=== PATIENT | female | born 1970 | race Caucasian/White ===

== ENCOUNTER 2016-08-10 19:19 | Emergency (ER) | payer OTHER, MEDICARE ==
[~2016-08-10] VITALS: Ht 165.1 cm; Wt 105.2 kg
[~2016-08-10 19:19] MED LIST: ADVAIR DISKUS 21 DSK PO; BENTYL 10 MG CA10 MG PO; BENTYL20 MG PO; BENZTROPINE MESY2 MG PO; CIPRO 500MG TA500 MG PO; CLONAZEPAM1 MG PO; COZAAR25 M1 PO; CYMBALTA60 MG; CYMBALTA60 MG PO; DILAUDID2 MG PO; GEODON 80 MG CA80 MG PO; HALOPERIDOL2 MG PO; IBUPROFEN800 MG PO; JANUVIA100 M1 PO; LEVOTHYROXINE0.05 MG PO; LOVAZA1 GM PO; MACROBID100 MG PO; METFORMIN1000 MG PO; OMEPRAZOLE40 MG PO; PERCOCET 325 MG1 TA2 PO; PERCOCET 325 MG1 TAB PO; PRAVASTATIN SOD10 MG PO; PYRIDIUM100 MG PO; SOMA 350MG TAB350 MG PO; TOPAMAX 100MG100 MG PO; TOPIRAMATE100 MG; TRAZODONE50 MG PO; ZANAFLEX4 MG PO; ZOFRAN ODT4 MG SL
--- NOTE | 2016-08-10 19:23 | ED MVC/FALL/TRAUMA COMPLAINT ---
History of Present Illness General Chief Complaint: Fall Stated Complaint: S/P LFALL IN BATHROOM, + HEAD STRIKE Source: patient Exam Limitations: no limitations Vital Signs & Intake/Output Vital Signs & Intake/Output Vital Signs Date Time Temp Pulse Resp B/P Pulse O2 O2 Flow FiO2 Ox Delivery Rate 08/10 1930 99.9 84 16 132/63 94 Nasal 2.0L Cannula Allergies Coded Allergies: NO KNOWN ALLERGIES (05/05/14) Reconcile Medications Benztropine Mesylate 2 MG TABLET 1 TAB PO BID SHAKING R/T OTHER MEDS ( Reported) Clonazepam 1 MG TABLET 1 TAB PO TID PRN ANXIETY (Reported) Dicyclomine Hydrochloride (Bentyl) 20 MG TAB 1 TAB PO TID PRN ABDOMINAL PAIN/ SPASMS Diphenoxylate HCl/Atropine (Lomotil 2.5-0.025 MG Tablet) 2.5 MG-0.025 MG TABLET 1 TAB PO 4 TIMES/DAY PRN DIARRHEA TEN...[id number] DULOXETINE HCL (Cymbalta) 60 MG CAPSULE.DR 1 CAP PO DAILY DEPRESSION ( Reported) FLUTICASONE/SALMETEROL (Advair 250-50 Diskus) 250 MCG-50 MCG/DOSE BLST.W.DEV 1 INH PO BID SOB (Reported) Ibuprofen 800 MG TABLET 1 TAB PO DAILY PRN PAIN (Reported) Levothyroxine Sodium 50 MCG TABLET 1 TAB PO DAILY AC THYROID (Reported) Losartan Potassium (Unknown Strength) TABLET (Unknown Dose) PO DAILY PROTEIN IN KIDNEYS (Reported) METFORMIN HCL (Metformin) 1,000 MG TABLET 1 TAB PO BID DIABETES (Reported) Kfqhe-1-Myhe Ethyl Esters (Lovaza) 1 GRAM CAPSULE 2 CAP PO BID CHOLESTEROL ( Reported) Omeprazole 40 MG CAPSULE.DR 1 CAP PO DAILY ACID REFLUX (Reported) Ondansetron (Zofran Odt) 4 MG TAB.RAPDIS 1 TAB SL TID PRN NAUSEA OXYCODONE HCL/ACETAMINOPHEN (Percocet 5-325 MG Tablet) 325 MG/5 MG TAB 1-1.5 TAB PO Q8P PRN PAIN (Reported) PHENAZOPYRIDINE HCL (Pyridium) 100 MG TAB 1 TAB PO TID PRN DYSURIA Pravastatin (Pravastatin Sodium) 10 MG TAB 1 TAB PO DAILY CHOLESTEROL ( Reported) Sitagliptin Phosphate (Januvia) (Unknown Strength) TABLET (Unknown Dose) PO DAILY DIABETES (Reported) Tizanidine Hydrochloride (Zanaflex) 4 MG TAB 1 TAB PO TID PRN MUSCLE SPASMS ( Reported) Topiramate (Topamax 100MG) 100 MG TABLET 1 TAB PO BID BIPOLAR/MIGRAINES ( Reported) TRAZODONE HCL (Trazodone HCl) 50 MG TABLET 2 TAB PO AT BEDTIME SLEEP ( Reported) Ziprasidone Hydrochloride (Geodon 80 MG Cap) 80 MG CAPSULE 2 CAP PO BID BIPOLAR (Reported) Triage Nurses Notes Reviewed? yes Onset: Abrupt Duration: minute(s): Timing: single episode today Severity: moderate Injuries/Fall Location: head Method of Injury: fall Loss of Consciousness: no loss of consciousness Modifying Factors: Improves With: rest. Worsens With: palpation. Associated Symptoms: headache HPI: 45 yo woman with chronic pain, presents after a mechanical fall in the bathroom. She notes that she hit her head. She did not lose consciousness, but notes a headache and neck pain. She is otherwise well and suffered no other injury. She also notes that she has had nausea and diarrhea for the past 2-3 days. No abdominal pain, fever, chills, dysuria. Past History Travel History Traveled to [place] past 21 day No Medical History Any Pertinent Medical History? see below for history Cardiovascular: hyperlipidemia Musculoskeletal: chronic back pain Psychiatric: bipolar disease Endocrine: diabetes, hypothyroidism Surgical History Surgical History: unobtainable Psychosocial History Who do you live with Spouse Services at Home None What is your primary language Croatian Family History Family History, If Any: FATHER *No pertinent family history, Onset: 50-60. Relation not specified for: FH: prostate cancer Hx Contributory? No Review of Systems Review of Systems Constitutional: Reports: no symptoms. Eyes: Reports: no symptoms. Ears, Nose, Throat, Mouth: Reports: no symptoms. Respiratory: Reports: no symptoms. Cardiovascular: Reports: no symptoms. Gastrointestinal/Abdominal: Reports: no symptoms. Genitourinary: Reports: no symptoms. Musculoskeletal: Reports: no symptoms. Skin: Reports: no symptoms. Neurological/Psychological: Reports: no symptoms. All Other Systems: Reviewed and Negative Physical Exam Physical Exam General Appearance: well developed/nourished, mild distress Head: atraumatic, normal appearance Eyes: Bilateral: normal appearance, PERRL, EOMI. Ears, Nose, Throat, Mouth: hearing grossly normal Neck: normal inspection, supple, full range of motion, normal alignment Respiratory: normal breath sounds, chest non-tender, no respiratory distress, quiet respiration, lungs clear Cardiovascular: regular rate/rhythm Gastrointestinal: normal bowel sounds, soft, non-tender, no organomegaly Back: normal inspection Extremities: normal range of motion Neurologic/Psych: no motor/sensory deficits, awake, alert, oriented x 3 Skin: intact, normal color, warm/dry Core Measures ACS in differential dx? No Severe Sepsis Present: No Septic Shock Present: No Progress Differential Diagnosis: C/T/L spine injury, ICH Plan of Care: Orders Procedure Date/time Status LIPASE 08/10 1924 Complete HEPATIC FUNCTION PANEL 08/10 1924 Complete CBC WITHOUT DIFFERENTIAL 08/10 1924 Complete BASIC METABOLIC PANEL 08/10 1924 Complete AMYLASE 08/10 1924 Complete Current Medications Sig/Idania Start time Last Medication Dose Stop Time Status Admin Morphine Sulfate 6 MG ONCE ONE 08/10 2299 UNVr (Morphine) 08/10 2300 Promethazine HCl 25 MG ONCE ONE 08/10 2299 UNVr (Phenergen) 08/10 2300 Laboratory Tests 08/10/16 2020: Anion Gap 12, Estimated GFR > 60, BUN/Creatinine Ratio 11.4, Glucose 119 H, Calcium 9.2, Total Bilirubin 0.5, Direct Bilirubin 0.3, AST 19, ALT 36, Alkaline Phosphatase 72, Total Protein 6.4, Albumin 3.7, Amylase < 30 L, Lipase 88, CBC w Diff NO MAN DIFF REQ, RBC 4.75, MCV 77.6 L, MCH 25.2 L, RDW 15.5 H, MPV 6.3 L, Gran % 61.9, Lymphocytes % 28.8, Monocytes % 6.7, Eosinophils % 2.2, Basophils % 0.4, Absolute Granulocytes 6.8 H, Absolute Lymphocytes 3.1, Absolute Monocytes 0.7 H, Absolute Eosinophils 0.2, Absolute Basophils 0, PUBS MCHC 32.5 L Diagnostic Imaging: Viewed by Me: CT Scan. Discussed w/RAD: CT Scan. Radiology Impression: head/cervical ct... no acute disease Comments: PATIENT: HARRIETT SORTO PRESENT AGE: 45 PATIENT ACCOUNT NO: [id number] : 68 LOCATION: [facility] ORDERING PHYSICIAN: CHRISSY ARIAS MD SERVICE DATE: 08/10/16-1925 EXAM TYPE: CAT - CT CERV SPINE WO IV CONTRAST; CT HEAD WO IV CONTRAST EXAMINATION: CT HEAD AND CERVICAL SPINE WITHOUT CONTRAST CLINICAL INFORMATION: Head injury following fall. COMPARISON: None. TECHNIQUE: Contiguous axial imaging was performed from the thoracic inlet to the vertex without intravenous administration of contrast. DLP: 833.06 mGy-cm. FINDINGS: Head: No acute intracranial abnormality. No acute intracranial hemorrhage, mass or mass effect or abnormal extra-axial fluid collections. The density within the dural venous sinuses is within normal limits. The ventricles are normal in size, without hydrocephalus. There are no focal areas of hypoattenuation within a vascular distribution to suggest acute transcortical ischemia. The basilar cisterns are patent. No acute calvarial abnormality is identified. Soft tissues appear unremarkable. The imaged paranasal sinuses and mastoid air cells are well aerated. Cervical spine: No acute cervical spine fractures or subluxations. Vertebral body heights and intervertebral disc spaces are preserved. The atlantoaxial and craniocervical junctions are intact. Prevertebral soft tissues are within normal limits. The included bilateral lung apices are clear. IMPRESSION: 1. No acute intracranial abnormality. 2. No acute cervical spine fracture or subluxation. DICTATED BY: MIGNON HOOD MD DATE/TIME DICTATED:08/10/162223 VEGETABLE SPECKER:MARCO DATE/TIME TRANSCRIBED:08/10/162223 CONFIDENTIAL, DO NOT COPY WITHOUT APPROPRIATE AUTHORIZATION. <Electronically signed in Other Vendor System> SIGNED BY: MIGNON HOOD MD 08/10/16 2240 Departure Departure Disposition: HOME OR SELF CARE Condition: Stable Clinical Impression Primary Impression: Fall Secondary Impressions: Contusion, Head injury, Nausea and vomiting Referrals: MERLINE ALEXIS MD (PCP/Family) Departure Forms: Customer Survey General Discharge Information Prescriptions: Current Visit Scripts Ondansetron (Zofran Odt) 1 TAB SL TID PRN NAUSEA #10 TAB Ref 1 Diphenoxylate HCl/Atropine (Lomotil 2.5-0.025 MG Tablet) 1 TAB PO 4 TIMES/DAY PRN DIARRHEA #10 TAB TEN...[id number] Comments 08/10/16, 23:00.... pt feeling improved after supportive measures... pt safe for discharge... close follow up advised.
[2016-08-10 20:32] LABS: ABSOLUTE BASOPHIL COUNT 0 /CUMM (0.0-0.2); ABSOLUTE EOSINOPHIL COUNT 0.2 /CUMM (0.0-0.7); ABSOLUTE GRANULOCYTE CT 6.8 /CUMM (1.4-6.5); ABSOLUTE LYMPH COUNT 3.1 /CUMM (1.2-3.4); ABSOLUTE MONOCYTE COUNT 0.7 /CUMM (0.10-0.60); BASOPHIL % 0.4 % (0.0-2.0); EOSINOPHIL % 2.2 % (0-5); GRANULOCYTE % 61.9 % (42.2-75.2); HEMATOCRIT 36.9 % (37-47); MEAN CORPUSCULAR HGB 25.2 PG (27.0-31.0); MEAN CORPUSCULAR HGB CONC 32.5 G/DL (33.0-37.0); MEAN CORPUSCULAR VOLUME 77.6 FL (81.0-99.0); MEAN PLATELET VOLUME 6.3 FL (7.4-10.4); PLATELET COUNT 425 /CUMM (130-400); RBC DISTRIBUTION WIDTH 15.5 % (11.5-14.5); RED BLOOD CELL CT 4.75 /CUMM (4.20-5.40); WHITE BLOOD CELL COUNT 10.9 /CUMM (4.8-10.8)
--- NOTE | 2016-08-10 22:40 | CT SCAN REPORT ---
EXAMINATION: CT HEAD AND CERVICAL SPINE WITHOUT CONTRAST CLINICAL INFORMATION: Head injury following fall. COMPARISON: None. TECHNIQUE: Contiguous axial imaging was performed from the thoracic inlet to the vertex without intravenous administration of contrast. DLP: 833.06 mGy-cm. FINDINGS: Head: No acute intracranial abnormality. No acute intracranial hemorrhage, mass or mass effect or abnormal extra-axial fluid collections. The density within the dural venous sinuses is within normal limits. The ventricles are normal in size, without hydrocephalus. There are no focal areas of hypoattenuation within a vascular distribution to suggest acute transcortical ischemia. The basilar cisterns are patent. No acute calvarial abnormality is identified. Soft tissues appear unremarkable. The imaged paranasal sinuses and mastoid air cells are well aerated. Cervical spine: No acute cervical spine fractures or subluxations. Vertebral body heights and intervertebral disc spaces are preserved. The atlantoaxial and craniocervical junctions are intact. Prevertebral soft tissues are within normal limits. The included bilateral lung apices are clear. IMPRESSION: 1. No acute intracranial abnormality. 2. No acute cervical spine fracture or subluxation.
[2016-08-10] MEDS ORDERED: ZOFRAN ODT4 M1 SL (22:59)
[2016-08-10] MEDS ORDERED: LOMOTIL 2.5-0.1 EACH PO (22:59)
[2016-08-10 23:09] VITALS: BP 105/55
[2016-11-14] MEDS ORDERED: LINZESS145 MC1 PO (12:35)
[2016-11-14] MEDS ORDERED: REGLAN10 M1 PO (12:36)
[2016-11-14] MEDS ORDERED: OXYCONTIN20 M1 PO (12:36)
[2016-11-14] MEDS ORDERED: VICTOZA 2-0.6 MG/0.1 SC (12:36)
[2016-11-14] MEDS ORDERED: BENZTROPINE MESY2 M1 PO (12:37)
[2016-11-14] MEDS ORDERED: ANORO ELLIPTA1 EACH (12:38)
== END 2016-08-11 00:02 ==
LOC: ERH 19:19
PROVIDERS: Pediatrics
DX: S00.93XA Contusion of unspecified part of head, initial encounter (principal); S09.90XA Unspecified injury of head, initial encounter; W19.XXXA Unspecified fall, initial encounter; Y92.002 Bathroom of unspecified non-institutional (private) residence as the place of occurrence of the external cause
CPT/HCPCS: 96374; 96375; J1885; J2405; J2550

== ENCOUNTER 2016-10-22 17:38 | Emergency (ER) | payer OTHER, MEDICARE ==
[~2016-10-22] VITALS: Ht 165.1 cm; Wt 108.0 kg
[~2016-10-22 17:38] MED LIST changes: +LOMOTIL 2.5-0.1 EACH PO; +ZOFRAN ODT4 M1 SL
[2016-10-22 17:43] VITALS: BP 126/77
--- NOTE | 2016-10-22 19:22 | ED MVC/FALL/TRAUMA COMPLAINT ---
History of Present Illness General Chief Complaint: Fall Stated Complaint: FALL; SHOULDER PAIN Source: patient, old records Exam Limitations: no limitations Vital Signs & Intake/Output Vital Signs & Intake/Output Vital Signs Date Time Temp Pulse Resp B/P Pulse O2 O2 Flow FiO2 Ox Delivery Rate 10/22 2016 97.6 87 18 96 Room Air 10/22 1938 Room Air 10/22 1743 98.9 100 14 126/77 100 Room Air Allergies Coded Allergies: NO KNOWN ALLERGIES (05/05/14) Reconcile Medications Benztropine Mesylate 2 MG TABLET 1 TAB PO BID SHAKING R/T OTHER MEDS ( Reported) Clonazepam 1 MG TABLET 1 TAB PO TID PRN ANXIETY (Reported) Dicyclomine Hydrochloride (Bentyl) 20 MG TAB 1 TAB PO TID PRN ABDOMINAL PAIN/ SPASMS Diphenoxylate HCl/Atropine (Lomotil 2.5-0.025 MG Tablet) 2.5 MG-0.025 MG TABLET 1 TAB PO 4 TIMES/DAY PRN DIARRHEA TEN...[id number] DULOXETINE HCL (Cymbalta) 60 MG CAPSULE.DR 1 CAP PO DAILY DEPRESSION ( Reported) FLUTICASONE/SALMETEROL (Advair 250-50 Diskus) 250 MCG-50 MCG/DOSE BLST.W.DEV 1 INH PO BID SOB (Reported) Ibuprofen 800 MG TABLET 1 TAB PO DAILY PRN PAIN (Reported) Levothyroxine Sodium 50 MCG TABLET 1 TAB PO DAILY AC THYROID (Reported) Losartan Potassium (Unknown Strength) TABLET (Unknown Dose) PO DAILY PROTEIN IN KIDNEYS (Reported) METFORMIN HCL (Metformin) 1,000 MG TABLET 1 TAB PO BID DIABETES (Reported) Cwqdi-0-Azjx Ethyl Esters (Lovaza) 1 GRAM CAPSULE 2 CAP PO BID CHOLESTEROL ( Reported) Omeprazole 40 MG CAPSULE.DR 1 CAP PO DAILY ACID REFLUX (Reported) Ondansetron (Zofran Odt) 4 MG TAB.RAPDIS 1 TAB SL TID PRN NAUSEA OXYCODONE HCL/ACETAMINOPHEN (Percocet 5-325 MG Tablet) 325 MG/5 MG TAB 1-1.5 TAB PO Q8P PRN PAIN (Reported) PHENAZOPYRIDINE HCL (Pyridium) 100 MG TAB 1 TAB PO TID PRN DYSURIA Pravastatin (Pravastatin Sodium) 10 MG TAB 1 TAB PO DAILY CHOLESTEROL ( Reported) Sitagliptin Phosphate (Januvia) (Unknown Strength) TABLET (Unknown Dose) PO DAILY DIABETES (Reported) Tizanidine Hydrochloride (Zanaflex) 4 MG TAB 1 TAB PO TID PRN MUSCLE SPASMS ( Reported) Topiramate (Topamax 100MG) 100 MG TABLET 1 TAB PO BID BIPOLAR/MIGRAINES ( Reported) TRAZODONE HCL (Trazodone HCl) 50 MG TABLET 2 TAB PO AT BEDTIME SLEEP ( Reported) Ziprasidone Hydrochloride (Geodon 80 MG Cap) 80 MG CAPSULE 2 CAP PO BID BIPOLAR (Reported) Triage Note: PT TO ED FOR FALL AND L SHOULDER PAIN AFTER TRIPPING OVER HER CAT THIS MORNING, ALSO C/O "A LUMP GROWING INTO MY SPINE AND CAN I SEE DR SALAZAR SINCE IM HERE?" DID NOT HIT HEAD, NO LOC. REFUSING MOTRIN/TYLENOL IN TRIAGE. Triage Nurses Notes Reviewed? yes Onset: Abrupt Duration: day(s): (1), constant Timing: recent history Severity: mild, moderate Severity Numbers: 7 Injuries/Fall Location: upper extremity (left shoulder) Method of Injury: fall Loss of Consciousness: no loss of consciousness Modifying Factors: Improves With: rest, other (pain meds). Worsens With: movement, palpation. Associated Symptoms: denies HPI: 45-year-old female with history of chronic back pain for which she takes oxycodone Percocets at home presents complaining of left shoulder pain aching throbbing nonradiating since earlier this morning when she states she tripped over her cat sustaining a fall onto the left side injuring her shoulder. She denies head strike there is no loss of consciousness no neck or back pain from the fall. She denies any elbow wrist or hand pain no right arm or leg injury bilaterally. There is no prodromal dizziness or lightheadedness prior to her fall. She reports her pain medication did help her with her pain today no numbness or tingling (KAMRON COLLADO) Past History Travel History Traveled to [place] past 21 day No Medical History Any Pertinent Medical History? 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 Relation not specified for: FH: prostate cancer Hx Contributory? No (KAMRON COLLADO) Review of Systems Review of Systems Constitutional: Reports: see HPI. All Other Systems: Reviewed and Negative Comments Review of systems: See HPI, All other systems negative. Constitutional, no chills no fever, no malaise HEENT: No sore throat no congestion Cardiovascular: No chest pain , no palpitation , Skin, no rashes, no change in skin Respiratory: No dyspnea no cough no sputum GI: No nausea no vomiting, : No dysuria No hematuria, no frequency Muscle skeletal: joint pain, no joint swelling, CHRONIC back pain, no neck pain , Neurologic: no headache Psych: No stress Heme/endocrine: No bruising no bleeding Immunology: No lymphadenopathy (KAMRON COLLADO) Physical Exam Physical Exam General Appearance: well developed/nourished, alert, awake Comments: Well-developed well-nourished patient in no apparent distress. HEENT: Atraumatic, extraocular motion intact Neck: Supple, FROM, Back: FROM, Nontender Cardiovascular: Regular rate and rhythms no murmurs rubs Respiratory: Chest nontender.There were no bony deformities, no asymmetry. No respiratory distress. Patient speaking in full complete sentences. Breath sounds clear to auscultation bilaterally: NO W/R/R Shoulder: Atraumatic/Stable. Limited range of motion secondary to pain no deformity no ecchymosis mild tenderness palpation over the lateral aspect of the left shoulder Elbow: Atraumatic/stable. FROM. No laxity Upper arm/Forearm: Atraumatic. Nontender. 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 Skin intact. FROM no scaphoid tenderness hand is atraumatic nontender Pulses: Normal/equal radial pulses bilaterally. Brisk cap refill Lower Extremities: full range of motion Neuro: Alert and oriented x3 Skin: Warm & dry;No appreciable rash on exposed skin Psych: Mood affect normal, normal memory normal judgment. Core Measures ACS in differential dx? No Severe Sepsis Present: No Septic Shock Present: No (KAMRON COLLADO) Progress Differential Diagnosis: ext injury, pelvis injury, spinal cord injury Plan of Care: Orders Procedure Date/time Status Durable Medical Equipment 10/22 1938 Active Discussed with patient her x-ray results patient is medicated Dilaudid 1 mg IM Discussed with patient her x-ray results need for supportive care shoulder immobilizer was applied advised close follow-up with orthopedist. Take her pain medication as prescribed she feels comfortable this plan patient is ambulatory with steady gait upon discharge (KAMRON COLLADO) Diagnostic Imaging: Viewed by Me: Radiology Read. Discussed w/RAD: Radiology Read. Radiology Impression: PATIENT: HARRIETT SORTO PRESENT AGE: 45 PATIENT ACCOUNT NO: [id number] : 66 LOCATION: [facility] ORDERING PHYSICIAN: MERRY VOSS DO SERVICE DATE: 10/22/16 EXAM TYPE: RAD - XRY-SHOULDER COMPLETE-LEFT EXAMINATION: SHOULDER 4 VIEWS, LEFT CLINICAL INFORMATION: Left shoulder pain. COMPARISON: None. TECHNIQUE: AP views of the left shoulder were obtained in internal and external rotation. In addition, axillary and Y views were obtained. FINDINGS: There are no fractures or dislocations. The humeral head is seated within a well-formed glenoid. The AC joint is intact. IMPRESSION: Unremarkable left shoulder radiographs. 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 <Electronically signed in Other Vendor System> SIGNED BY: JOHN CHAVEZ MD 10/22/161942 (KAMRON COLLADO) Departure Departure Time of Disposition: 1947 Disposition: HOME OR SELF CARE Condition: Stable Clinical Impression Primary Impression: Shoulder sprain Referrals: DELON AMADOR,JOEY ALEXIS MD,MERLINE (PCP/Family) Additional Instructions: Rest ice take your pain medication as prescribed. Shoulder immobilizer as discussed. Follow-up with orthopedist Dr. hoffman if symptoms persist. return with any concerns Departure Forms: Customer Survey General Discharge Information (KAMRON COLLADO) PA/MISSION SUPPORT SPECIALIST Co-Sign Statement Statement: ED Attending supervision documentation- [] I saw and evaluated the patient. I have also reviewed all the pertinent lab results and diagnostic results. I agree with the findings and the plan of care as documented in the PA's/MISSION SUPPORT SPECIALIST's documentation. [x] I have reviewed the ED Record and agree with the PA's/MISSION SUPPORT SPECIALIST's documentation. [] Additions or exceptions (if any) to the PAs/MISSION SUPPORT SPECIALIST's note and plan are summarized below: [] (HUGO AMADOR,CHRISSY Duong)
--- NOTE | 2016-10-22 19:43 | RADIOLOGY REPORT ---
EXAMINATION: SHOULDER 4 VIEWS, LEFT CLINICAL INFORMATION: Left shoulder pain. COMPARISON: None. TECHNIQUE: AP views of the left shoulder were obtained in internal and external rotation. In addition, axillary and Y views were obtained. FINDINGS: There are no fractures or dislocations. The humeral head is seated within a well-formed glenoid. The AC joint is intact. IMPRESSION: Unremarkable left shoulder radiographs.
[2016-11-14] MEDS ORDERED: LINZESS145 MC1 PO (12:35)
[2016-11-14] MEDS ORDERED: OXYCONTIN20 M1 PO (12:36)
[2016-11-14] MEDS ORDERED: VICTOZA 2-0.6 MG/0.1 SC (12:36)
[2016-11-14] MEDS ORDERED: REGLAN10 M1 PO (12:36)
[2016-11-14] MEDS ORDERED: BENZTROPINE MESY2 M1 PO (12:37)
[2016-11-14] MEDS ORDERED: ANORO ELLIPTA1 EACH (12:38)
== END 2016-10-22 20:18 ==
LOC: ERH 17:38
DX: S43.402A Unspecified sprain of left shoulder joint, initial encounter (principal); W01.0XXA Fall on same level from slipping, tripping and stumbling without subsequent striking against object, initial encounter; Y93.9 Activity, unspecified; Y92.9 Unspecified place or not applicable
CPT/HCPCS: 73030-LT; 96372

== ENCOUNTER → 2016-11-21 | Day surgery (SDC) | payer OTHER, MEDICARE ==
[~2016-11-21] VITALS: Ht 165.1 cm; Wt 108.0 kg
[~2016-11-21] MED LIST changes: +ANORO ELLIPTA1 EACH; +BENZTROPINE MESY2 M1 PO; +LINZESS145 MC1 PO; +OXYCONTIN20 M1 PO; +REGLAN10 M1 PO; +VICTOZA 2-0.6 MG/0.1 SC
--- NOTE | 2016-11-21 14:32 | Operative Report ---
Operative/Inv Procedure Report Surgery Date: 11/21/16 Name of Procedure: Excision subfascial 10 cm lipoma, back Pre-Operative Diagnosis: Deep lipoma of the back Post-Operative Diagnosis: Same Estimated Blood Loss: scant Surgeon/Logistics Project Manager: MARIE AMADOR,TRACEY Woodard/Consuelo AKERS Anesthesia: local monitored anesthesi Specimens: 10 cm lipoma Operative/Procedure Note Note: After consent she was brought to the operating room and laid prone. Her back was then prepped and draped after sedation. The area around the mass was symmetrical cocktail local anesthesia. A transverse incision made sharply. Care dissection down to the investing fascia. We then incised the fascia thus exposing the mass. The mass was circumferentially dissected off the muscles with cautery. It was passed off the field and measured at 10 cm. Hemostasis achieved with cautery. The fascia was reapproximated with 3-0 Vicryl while imbricating the deeper tissues to try to it closed down the space previously occupied by the mass. The rest incision was closed in 2 more layers of 3-0 and 4-0 Vicryl. Steri-Strips and sterile dressing applied. Sponge and needle counts are correct CC: REUBEN AMADOR,MERLINE
== END ==
LOC: STS 01:11
DX: D17.1 Benign lipomatous neoplasm of skin and subcutaneous tissue of trunk (principal); E11.9 Type 2 diabetes mellitus without complications; Z79.84 Long term (current) use of oral hypoglycemic drugs; F17.200 Nicotine dependence, unspecified, uncomplicated
CPT/HCPCS: 81025; 88304; J0131; J0690; J2250

== ENCOUNTER 2016-11-28 11:53 | Emergency (ER) | payer OTHER, MEDICARE ==
[~2016-11-28] VITALS: Ht 165.1 cm; Wt 105.2 kg
--- NOTE | 2016-11-28 12:11 | ED MVC/FALL/TRAUMA COMPLAINT ---
History of Present Illness General Chief Complaint: Headache Stated Complaint: BIBA FOR FARIA Source: patient Exam Limitations: no limitations Vital Signs & Intake/Output Vital Signs & Intake/Output Vital Signs Date Time Temp Pulse Resp B/P B/P Pulse O2 O2 Flow FiO2 Mean Ox Delivery Rate 11/28 1339 97.4 110 18 122/63 95 11/28 1240 97 Room Air 11/28 1233 101 20 151/58 93 Room Air 11/28 1159 97.0 99 18 136/65 94 Room Air Allergies Coded Allergies: NO KNOWN ALLERGIES (05/05/14) Reconcile Medications Benztropine Mesylate 2 MG TABLET 1 TAB PO BID ? (Reported) Clonazepam 1 MG TABLET 1 TAB PO TID PRN ANXIETY (Reported) DULOXETINE HCL (Cymbalta) 60 MG CAPSULE.DR 1 CAP PO DAILY DEPRESSION ( Reported) Levothyroxine Sodium 50 MCG TABLET 1 TAB PO DAILY AC THYROID (Reported) Linaclotide (Linzess) 145 MCG CAPSULE 1 CAP PO DAILY OPIOD INDUCED CONSTIPATION (Reported) Liraglutide (Victoza 2-Garry) 0.6 MG/0.1 ML (18 MG/3 ML) PEN.INJCTR 1.8 SC DAILY DMII (Reported) Losartan Potassium (Cozaar) 25 MG TABLET 1 TAB PO DAILY KIDNEY PROTECTION ( Reported) METFORMIN HCL (Metformin) 1,000 MG TABLET 1 TAB PO BID DIABETES (Reported) Metoclopramide HCl (Reglan) 10 MG TABLET 1 TAB PO 4 TIMES/DAY GERD (Reported) 30 minutes before meals and bedtime Omeprazole 40 MG CAPSULE.DR 1 CAP PO DAILY ACID REFLUX (Reported) Oxycodone HCl (Oxycontin) 20 MG TAB.ER.12H 1 TAB PO BID CHRONIC BACK PAIN ( Reported) OXYCODONE HCL/ACETAMINOPHEN (Percocet 5-325 MG Tablet) 325 MG/5 MG TAB 1-1.5 TAB PO Q8P PRN PAIN (Reported) Sitagliptin Phosphate (Januvia) 100 MG TABLET 1 TAB PO DAILY DM II (Reported) Tizanidine Hydrochloride (Zanaflex) 4 MG TAB 1 TAB PO TID PRN MUSCLE SPASMS ( Reported) Topiramate (Topamax 100MG) 100 MG TABLET 1 TAB PO BID BIPOLAR/MIGRAINES ( Reported) Umeclidinium Brm/Vilanterol Tr (Anoro Ellipta 62.5-25 Mcg INH) 62.5 MCG-25 MCG/ ACTUATION BLST.W.DEV ASTHMA (Reported) Ziprasidone Hydrochloride (Geodon 80 MG Cap) 80 MG CAPSULE 2 CAP PO BID BIPOLAR (Reported) Triage Note: PT BIBA FROM HOME WITH C/O HEADACHE X2 DAYS AND NAUSEA SINCE LAST NIGHT. PT REPORTS FALLING OUT OF BED 2 DAYS AGO AND HITTING HER FOREHEAD. REPORTS NO LOC WITH FALL. HAS HAD HEADACHE SINCE, ALSO C/O BACK OF HEAD PAIN. Triage Nurses Notes Reviewed? yes Onset: Abrupt Duration: day(s): (2), intermittent, waxing and waning Timing: recent history Severity: moderate Severity Numbers: 7 Injuries/Fall Location: head Method of Injury: fall Loss of Consciousness: no loss of consciousness No Modifying Factors: none Associated Symptoms: nausea/vomiting HPI: 46-year-old female presents emergency room for evaluation complaining of a frontal headache for the past 2 days intermittent nausea and "fogginess" after she states she fell out of bed. Patient states that she was on the edge of the bed and lost her balance striking her head against the floor. There is no loss of consciousness at the time she's been taking her Percocet which she takes normally for her chronic pain with improvement. She denies any neck or back injury other injury with the fall. No prodromal dizziness lightheadedness prior to the episode of chest pain difficulty breathing shortness of breath or leg injury. (KAMRON COLLADO) Past History Travel History Traveled to [place] past 21 day No Medical History Any Pertinent Medical History? 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 Relation not specified for: FH: prostate cancer Hx Contributory? No (KAMRON COLLADO) Review of Systems Review of Systems Constitutional: Reports: see HPI. All Other Systems: Reviewed and Negative Comments Review of systems: See HPI, All other systems negative. Constitutional, no chills no fever, no malaise HEENT: No visual changes no sore throat no congestion, no ear pain Cardiovascular: No chest pain , no palpitation , no orthopnea Skin: no rashes, no change in skin Respiratory: No dyspnea no cough no sputum GI: nausea no vomiting, no diarrhea, no bloating/constipation : No dysuria No hematuria, no frequency, no discharge Muscle skeletal: No joint pain, no joint swelling, no back pain, no neck pain, Neurologic: No numbness no confusion, headache Psych: No stress Heme/endocrine: No bruising Immunology: No lymphadenopathy (KAMRON COLLADO) Physical Exam Physical Exam General Appearance: well developed/nourished, alert, awake Comments: Well-developed well-nourished person in no acute distress Head/Face: Atraumatic, no maxillary/frontal sinus tenderness, no facial swelling no marx signs Eyes: PERRL, EOMI, no conjunctival injection. No nystagmus no raccoon eyes Ear:External auditory canal and Tympanic membranes clear, no erythema, no hemotympanum Nose: atraumatic.Normal inspection: No bleeding, no septal hematoma Throat: Moist mucous membranes.Pharynx normal. No pharyngeal erythema/exudate seen. No stridor/drooling or assymetry. No swelling or edema. Neck: Supple, no lymphadenopathy, FROM Back: Nontender, no CVA tenderness. Full range of motion Cardiovascular: Regular rate and rhythms no murmurs rubs Respiratory: Chest nontender.There were no bony deformities, no asymmetry. No respiratory distress. Patient speaking in full complete sentences. Breath sounds clear to auscultation bilaterally: NO W/R/R Abdomen: Soft, nontender nondistended, no appreciable organomegaly Extremity: No edema, full range of motion of extremities, normal and equal pulses bilaterally, 5 out of 5 strength noted to bilateral upper and lower extremities Neuro: Alert oriented x3, motor sensory normal, cranial nerves II through XII grossly intact. There were no obvious focal neurologic abnormalities. Skin: No appreciable rash on exposed skin, skin is warm and dry. Psych: Mood and affect is normal, memory and judgment is normal. Core Measures ACS in differential dx? No Severe Sepsis Present: No Septic Shock Present: No (KAMRON COLLADO) Progress Differential Diagnosis: C/T/L spine injury, ext injury, ICH, spinal cord injury Plan of Care: PT medication with Percocet and Zofran alert and oriented at this time 3 Patient ambulatory here in the emergency room I discussed with the patient at length all of their results. I had an extensive conversation regarding need for close follow up with their primary care physician this week as well as return precautions. I answered all of their questions, they feel comfortable with the plan and follow-up care. Diagnostic Imaging: Viewed by Me: CT Scan. Discussed w/RAD: CT Scan. Radiology Impression: PATIENT: HARRIETT SORTO PRESENT AGE: 46 PATIENT ACCOUNT NO: [id number] : 68 LOCATION: [facility] ORDERING PHYSICIAN: KAMRON AKERS SERVICE DATE: 11/28/16 EXAM TYPE: CAT - CT HEAD WO IV CONTRAST EXAMINATION: CT HEAD WITHOUT CONTRAST CLINICAL INFORMATION: Status post fall out of bed. Headache. Rule out ICH. COMPARISON: TECHNIQUE: Contiguous axial imaging was performed from the skull base to vertex without intravenous administration of contrast. DLP: 600.7 mGy-cm FINDINGS: There is no evidence of acute intracranial hemorrhage or territorial infarction. No abnormal mass effect or midline shift is seen. Haider to white matter differentiation is well preserved. No extra-axial fluid collections are identified. The ventricles are normal in size. There is no abnormal attenuation within the brain parenchyma. The osseous structures and soft tissues are normal. The mastoid air cells and visualized portions of the paranasal sinuses are well aerated. IMPRESSION: No acute intracranial pathology. DICTATED BY: YULISSA GEORGE MD DATE/TIME DICTATED:11/28/161248 HISTORICAL ARCHEOLOGIST:MARCO DATE/TIME TRANSCRIBED:11/28/161248 CONFIDENTIAL, DO NOT COPY WITHOUT APPROPRIATE AUTHORIZATION. <Electronically signed in Other Vendor System> SIGNED BY: YULISSA GEORGE MD 11/28/16 0258 (KAMRON COLLADO) Departure Departure Time of Disposition: 1307 Disposition: HOME OR SELF CARE Condition: Stable Clinical Impression Primary Impression: Concussion Secondary Impressions: Minor head injury Referrals: MERLINE ALEXIS MD (PCP/Family) Additional Instructions: Continue taking your medications as prescribed follow-up with your primary care physician. Brain rest limited TV cell phone computer usage as this may make your symptoms worse. Departure Forms: Customer Survey General Discharge Information (JOSEPH AKERS,KAMRON) PA/VENEER STOCK LAYER Co-Sign Statement Statement: ED Attending supervision documentation- [] I saw and evaluated the patient. I have also reviewed all the pertinent lab results and diagnostic results. I agree with the findings and the plan of care as documented in the PA's/VENEER STOCK LAYER's documentation. x I have reviewed the ED Record and agree with the PA's/VENEER STOCK LAYER's documentation. [] Additions or exceptions (if any) to the PAs/VENEER STOCK LAYER's note and plan are summarized below: [] (PENG AMADOR,ASHLEIGH)
--- NOTE | 2016-11-28 12:54 | CT SCAN REPORT ---
EXAMINATION: CT HEAD WITHOUT CONTRAST CLINICAL INFORMATION: Status post fall out of bed. Headache. Rule out ICH. COMPARISON: 08/10/2016 TECHNIQUE: Contiguous axial imaging was performed from the skull base to vertex without intravenous administration of contrast. DLP: 600.7 mGy-cm FINDINGS: There is no evidence of acute intracranial hemorrhage or territorial infarction. No abnormal mass effect or midline shift is seen. Haider to white matter differentiation is well preserved. No extra-axial fluid collections are identified. The ventricles are normal in size. There is no abnormal attenuation within the brain parenchyma. The osseous structures and soft tissues are normal. The mastoid air cells and visualized portions of the paranasal sinuses are well aerated. IMPRESSION: No acute intracranial pathology.
[2016-11-28 13:39] VITALS: BP 122/63
== END 2016-11-28 13:44 ==
LOC: ERH 11:53
DX: S06.0X0A Concussion without loss of consciousness, initial encounter (principal); S09.90XA Unspecified injury of head, initial encounter; W06.XXXA Fall from bed, initial encounter; Y93.89 Activity, other specified; Y92.9 Unspecified place or not applicable
CPT/HCPCS: J3101

== ENCOUNTER 2018-01-30 21:48 | Emergency (ER) | payer OTHER, MEDICARE ==
[~2018-01-30] VITALS: Ht 165.1 cm; Wt 97.1 kg
[~2018-01-30 21:48] MED LIST changes: -ANORO ELLIPTA1 EACH; +ANORO ELLIPTA1 EACH PO; +CLONAZEPAM1 M2 PO; -CLONAZEPAM1 MG PO; +CYMBALTA60 M1 PO; -CYMBALTA60 MG PO; -GEODON 80 MG CA80 MG PO; +GEODON80 MG PO; +IBUPROFEN600 M1 PO; -LEVOTHYROXINE0.05 MG PO; +LEVOTHYROXINE50 MCG PO; +LIDODERM1 EACH TOP; +METFORMIN HCL1000 M1 PO; -METFORMIN1000 MG PO; +NEXIUM40 M1 PO; +OXYCODONE HCL5 M1 PO; +SYMBICORT 16010.2 GM INH; +TESSALON PERLE100 M1 PO; -TOPAMAX 100MG100 MG PO; +TOPAMAX100 M1 PO; +ZANAFLEX4 M1 PO; -ZANAFLEX4 MG PO; +ZITHROMAX250 M2 PO
--- NOTE | 2018-01-31 00:52 | ED GENERAL ADULT ---
History of Present Illness General Chief Complaint: Low Back Pain/Injury Stated Complaint: BACK PAIN AND R BIG TOE Source: patient, old records Exam Limitations: no limitations Vital Signs & Intake/Output Vital Signs & Intake/Output Vital Signs Date Time Temp Pulse Resp B/P B/P Pulse O2 O2 Flow FiO2 Mean Ox Delivery Rate 01/31 0053 78 18 110/70 99 Room Air 01/30 2159 98.8 87 20 96/67 96 Room Air ED Intake and Output 01/31 0000 01/30 1200 Intake Total Output Total Balance Patient 214 lb Weight Weight Reported by Patient Measurement Method Allergies Coded Allergies: NO KNOWN ALLERGIES (UNKNOWN 01/18/17) Reconcile Medications Azithromycin (Zithromax) 250 MG TABLET 1 DP PO AD bronchitis 2 the first day followed by 1 for days 2-5 Benzonatate (Tessalon Perle) 100 MG CAPSULE 1 CAP PO TID PRN cough Benztropine Mesylate 2 MG TABLET 1 TAB PO BID ? (Reported) Clonazepam 1 MG TABLET 1 TAB PO TIDPRN PRN ANXIETY (Reported) Duloxetine HCl (Cymbalta) 60 MG CAPSULE.DR 1 CAP PO DAILY DEPRESSION ( Reported) Esomeprazole (Nexium) 40 MG CAPSULE.DR 1 CAP PO DAILY GI (Reported) Ibuprofen 600 MG TABLET 1 TAB PO TID PRN pain with food Levothyroxine Sodium 50 MCG TABLET 1 TAB PO DAILY AC THYROID (Reported) Lidocaine (Lidoderm) 5 % ADH..PATCH 1 PAT TOP DAILY PRN pain may wear up to 12 hours Linaclotide (Linzess) 145 MCG CAPSULE 1 CAP PO DAILY OPIOD INDUCED CONSTIPATION (Reported) Liraglutide (Victoza 2-Garry) 0.6 MG/0.1 ML (18 MG/3 ML) PEN.INJCTR 1.8 SC DAILY DMII (Reported) Losartan Potassium (Cozaar) 25 MG TABLET 1 TAB PO DAILY KIDNEY PROTECTION ( Reported) Metformin HCl 1,000 MG TABLET 1 TAB PO BID DIABETES (Reported) Oxycodone HCl 5 MG TABLET 1 TAB PO BID PAIN (Reported) Oxycodone HCl (Oxycontin) 20 MG TAB.ER.12H 1 TAB PO BID CHRONIC BACK PAIN ( Reported) Oxycodone HCl (Oxycontin) 20 MG TAB.ER.12H 1 TAB PO BID pain Oxycodone HCl 5 MG TABLET 1 TAB PO BIDP PRN pain Sitagliptin Phosphate (Januvia) 100 MG TABLET 1 TAB PO DAILY DM II (Reported) Tizanidine HCl (Zanaflex) 4 MG TABLET 1 TAB PO TID PRN MUSCLE SPASMS ( Reported) Topiramate (Topamax) 100 MG TABLET 1 TAB PO BID BIPOLAR (Reported) Umeclidinium Brm/Vilanterol Tr (Anoro Ellipta 62.5-25 Mcg INH) 62.5 MCG-25 MCG/ ACTUATION BLST.W.DEV 2 PUFF PO DAILY BREATHING PROBLEMS (Reported) Ziprasidone HCl (Geodon) 80 MG CAPSULE 2 CAP PO BID BIPOLAR (Reported) Triage Note: PT HERE FROM HOME WITH C/O BACK PAIN AND RIGHT FOOT AND BIG TOE PAIN. PT STATES SHE IS ON PAIN MANAGEMENT AND HER MEDS WERE "LOST LAST WEEK AND WAITING FOR POLICE REPORT BEFORE ABLE TO OBTAIN MORE". PT THEN STATES THAT SHE THINKS SHE IS DEHYDRATED "BECAUSE ALL I DO IS WANNA SLEEP BECAUSE OF THE PAIN AND I HAVENT BEEN EATING OR DRINKING". PT REPORTS BEING A NON ISULIN DIABETIC. K Triage Nurses Notes Reviewed? yes Onset: Last week Duration: day(s):, constant, continues in ED Timing: recent history Severity: moderate, severe Modifying Factors: Improves With: medication. Worsens With: movement. Associated Symptoms: back pain LMP (ages 10-50): post menopausal : No Patient currently breastfeeds: No HPI: Last week patient reports losing her oxycodone 15 mg tabs at a local grocery store. She is trying to file police report for the loss to have her prescription refilled. She complains of continued chronic low back pain right foot pain. She denies fever chills nausea vomiting diarrhea abdominal pain chest pain shortness breath headache dysuria rash bleeding change in motor sensory function change in bowel bladder habit. Past History Travel History Traveled to [place] past 21 day No Medical History Any Pertinent Medical History? 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 Relation not specified for: FH: prostate cancer Hx Contributory? No Review of Systems Review of Systems Constitutional: Reports: no symptoms. EENTM: Reports: no symptoms. Respiratory: Reports: no symptoms. Cardiovascular: Reports: no symptoms. GI: Reports: no symptoms. Genitourinary: Reports: no symptoms. Musculoskeletal: Reports: see HPI, back pain, joint pain. Skin: Reports: no symptoms. Neurological/Psychological: Reports: no symptoms. Hematologic/Endocrine: Reports: no symptoms. Immunologic/Allergic: Reports: no symptoms. All Other Systems: Reviewed and Negative Physical Exam Physical Exam General Appearance: well developed/nourished, alert, awake, anxious, mild distress, obese Head: atraumatic, normal appearance Eyes: Bilateral: normal appearance, PERRL, EOMI. Ears, Nose, Throat: normal pharynx, normal ENT inspection, hearing grossly normal Neck: normal inspection, supple, full range of motion, no midline tenderness Respiratory: normal breath sounds, chest non-tender, no respiratory distress, quiet respiration, lungs clear Cardiovascular: regular rate/rhythm, normal peripheral pulses, norml femoral pulses equa Peripheral Pulses: 4+ carotid (R), 4+ carotid (L) Gastrointestinal: normal bowel sounds, soft, non-tender, no organomegaly Back: normal inspection, normal range of motion, no vertebral tenderness Extremities: normal inspection, normal capillary refill, normal range of motion, no edema Neurologic/Psych: no motor/sensory deficits, awake, alert, oriented x 3, normal gait, 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 Skin: intact, normal color, warm/dry Lymphatic: no anterior cervical kathy Core Measures ACS in differential dx? No CVA/TIA Diagnosis: No Sepsis Present: No Sepsis Focused Exam Completed? No Progress Differential Diagnoses I considered the following diagnoses in my evaluation of the patient: Chronic pain syndrome Plan of Care: Current Medications Sig/Idania Start time Last Medication Dose Stop Time Status Admin Oxycodone/ 3 TAB ONCE ONE 01/31 0100 UNVr Acetaminophen 01/31 010 (Percocet) Initial ED EKG: none Departure Departure Time of Disposition: 50 Disposition: HOME OR SELF CARE Condition: Stable Clinical Impression Primary Impression: Chronic pain syndrome Referrals: Orlando Skinner MD (PCP/Family) Additional Instructions: Follow up with the police and your body technician/painter Departure Forms: Customer Survey General Discharge Information Critical Care Note Critical Care Note Critical Care Time: non-applicable
[2018-01-31 00:53] VITALS: BP 110/70
== END 2018-01-31 01:02 ==
LOC: ERH 21:48
DX: G89.29 Other chronic pain (principal)

== ENCOUNTER 2018-03-13 15:46 | Emergency (ER) | payer OTHER, MEDICARE ==
[~2018-03-13] VITALS: Ht 165.1 cm; Wt 112.9 kg
[2018-03-13 16:27] LABS: ABSOLUTE BASOPHIL COUNT 0 /CUMM (0.0-0.2); ABSOLUTE EOSINOPHIL COUNT 0.3 /CUMM (0.0-0.7); ABSOLUTE LYMPH COUNT 2.7 /CUMM (1.2-3.4); ABSOLUTE MONOCYTE COUNT 0.7 /CUMM (0.10-0.60); BASOPHIL % 0.4 % (0.0-2.0); EOSINOPHIL % 2.9 % (0-5); GRANULOCYTE % 61.8 % (42.2-75.2); HEMATOCRIT 32.7 % (37-47); MEAN CORPUSCULAR HGB CONC 33.2 G/DL (33.0-37.0); MEAN CORPUSCULAR VOLUME 81.3 FL (81.0-99.0); MEAN PLATELET VOLUME 6.9 FL (7.4-10.4); PLATELET COUNT 315 /CUMM (130-400); RBC DISTRIBUTION WIDTH 15.4 % (11.5-14.5); RED BLOOD CELL CT 4.03 /CUMM (4.20-5.40); WHITE BLOOD CELL COUNT 9.7 /CUMM (4.8-10.8)
[2018-03-13 18:03] VITALS: BP 110/53
--- NOTE | 2018-03-13 18:36 | ED GENERAL ADULT ---
History of Present Illness General Chief Complaint: Dizziness Stated Complaint: DIZZY, "FEEL LIKE IM GONNA PASS OUT" Source: patient Exam Limitations: no limitations Vital Signs & Intake/Output Vital Signs & Intake/Output Vital Signs Date Time Temp Pulse Resp B/P B/P Pulse O2 O2 Flow FiO2 Mean Ox Delivery Rate 03/13 2005 Room Air 03/13 1803 98.4 64 18 110/53 96 03/13 1553 97.6 87 16 95/60 96 Room Air ED Intake and Output 03/14 0000 03/13 1200 Intake Total Output Total Balance Patient 249 lb Weight Weight Reported by Patient Measurement Method Allergies Coded Allergies: NO KNOWN ALLERGIES (UNKNOWN 01/18/17) Reconcile Medications Azithromycin (Zithromax) 250 MG TABLET 1 DP PO AD bronchitis 2 the first day followed by 1 for days 2-5 Benzonatate (Tessalon Perle) 100 MG CAPSULE 1 CAP PO TID PRN cough Benztropine Mesylate 2 MG TABLET 1 TAB PO BID ? (Reported) Clonazepam 1 MG TABLET 1 TAB PO TIDPRN PRN ANXIETY (Reported) Duloxetine HCl (Cymbalta) 60 MG CAPSULE.DR 1 CAP PO DAILY DEPRESSION ( Reported) Esomeprazole (Nexium) 40 MG CAPSULE.DR 1 CAP PO DAILY GI (Reported) Ibuprofen 600 MG TABLET 1 TAB PO TID PRN pain with food Levothyroxine Sodium 50 MCG TABLET 1 TAB PO DAILY AC THYROID (Reported) Lidocaine (Lidoderm) 5 % ADH..PATCH 1 PAT TOP DAILY PRN pain may wear up to 12 hours Linaclotide (Linzess) 145 MCG CAPSULE 1 CAP PO DAILY OPIOD INDUCED CONSTIPATION (Reported) Liraglutide (Victoza 2-Garry) 0.6 MG/0.1 ML (18 MG/3 ML) PEN.INJCTR 1.8 SC DAILY DMII (Reported) Losartan Potassium (Cozaar) 25 MG TABLET 1 TAB PO DAILY KIDNEY PROTECTION ( Reported) Metformin HCl 1,000 MG TABLET 1 TAB PO BID DIABETES (Reported) Oxycodone HCl 5 MG TABLET 1 TAB PO BID PAIN (Reported) Oxycodone HCl (Oxycontin) 20 MG TAB.ER.12H 1 TAB PO BID CHRONIC BACK PAIN ( Reported) Oxycodone HCl (Oxycontin) 20 MG TAB.ER.12H 1 TAB PO BID pain Oxycodone HCl 5 MG TABLET 1 TAB PO BIDP PRN pain Sitagliptin Phosphate (Januvia) 100 MG TABLET 1 TAB PO DAILY DM II (Reported) Tizanidine HCl (Zanaflex) 4 MG TABLET 1 TAB PO TID PRN MUSCLE SPASMS ( Reported) Topiramate (Topamax) 100 MG TABLET 1 TAB PO BID BIPOLAR (Reported) Umeclidinium Brm/Vilanterol Tr (Anoro Ellipta 62.5-25 Mcg INH) 62.5 MCG-25 MCG/ ACTUATION BLST.W.DEV 2 PUFF PO DAILY BREATHING PROBLEMS (Reported) Ziprasidone HCl (Geodon) 80 MG CAPSULE 2 CAP PO BID BIPOLAR (Reported) Triage Note: 47 Y/O FEMALE C/O N/V/D SINCE THIS AM; ALSO C/O INTERMITTENT DIFFUSE ABDOMINAL PAIN AND LOWER L FLANK PAIN. HX KIDNEY STONES AND STATES SHE IS UNABLE TO TELL IF THIS IS THE SAME OR DIFFERENT. PT STATES SHE FEELS WEAK, B/P 95/60. AFEBRILE Triage Nurses Notes Reviewed? yes Onset: Abrupt Duration: day(s): (2), constant, continues in ED, getting worse Timing: recent history Injury Environment: home Severity: moderate, severe Severity Numbers: 9 No Modifying Factors: none Associated Symptoms: back pain LMP (ages 10-50): unknown : No Patient currently breastfeeds: No HPI: 47-year-old female history of hyperlipidemia, hypertension, chronic back pain, bipolar disorder presented for evaluation of left flank pain nausea vomiting diarrhea weakness and dizziness. Patient reports symptoms started about 2 days ago and getting worse. Pain is located in the left side of the lower back radiates in the left flank. She reports a history of kidney stones and states this feels similar. She has no chest pain or shortness of breath. No hematuria dysuria frequency urgency. She does report watery diarrhea without blood. Also nausea and vomiting. She is tolerating some fluids. No recent abdominal surgeries. (Emir Shirley) Past History Travel History Traveled to [place] past 21 day No Medical History Any Pertinent Medical History? 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 Relation not specified for: FH: prostate cancer Hx Contributory? No (Emir Shirley) Review of Systems Review of Systems Constitutional: Reports: no symptoms. EENTM: Reports: no symptoms. Respiratory: Reports: no symptoms. Cardiovascular: Reports: no symptoms. GI: Reports: see HPI, abdominal pain, diarrhea, nausea, vomiting. Genitourinary: Reports: no symptoms. Musculoskeletal: Reports: no symptoms. Skin: Reports: no symptoms. Neurological/Psychological: Reports: no symptoms. Hematologic/Endocrine: Reports: no symptoms. Immunologic/Allergic: Reports: no symptoms. All Other Systems: Reviewed and Negative (Emir Shirley) Physical Exam Physical Exam General Appearance: well developed/nourished, no apparent distress, alert, awake Head: atraumatic, normal appearance Eyes: Bilateral: normal appearance, EOMI. Ears, Nose, Throat: hearing grossly normal Neck: normal inspection, supple, full range of motion Respiratory: normal breath sounds, chest non-tender, no respiratory distress, lungs clear Cardiovascular: regular rate/rhythm, normal peripheral pulses Peripheral Pulses: 2+ radial (R), 2+ radial (L) Gastrointestinal: normal bowel sounds, soft, no organomegaly, tenderness (LEFT FLANK, LLQ) Back: normal inspection, normal range of motion, no vertebral tenderness, LEFT LUMBAR PARASPINOUS MUSCLES TENDER TO PALPATION Extremities: normal inspection, normal range of motion, no edema Neurologic/Psych: no motor/sensory deficits, awake, alert, oriented x 3, normal gait Skin: intact, normal color, warm/dry Lymphatic: no anterior cervical kathy Core Measures ACS in differential dx? No CVA/TIA Diagnosis: No Sepsis Present: No Sepsis Focused Exam Completed? No (Emir Shirley) Progress Differential Diagnoses I considered the following diagnoses in my evaluation of the patient: [Kidney stone, pyelonephritis, diverticulitis, small bowel obstruction, gastroenteritis, viral syndrome, acute on chronic back pain] Plan of Care: Orders Procedure Date/time Status LACTIC ACID 03/13 191 Complete URINALYSIS 03/13 155 Complete TROPONIN LEVEL 03/13 155 Complete HUMAN BETA HCG SCREEN 03/13 155 Complete COMPREHENSIVE METABOLIC PANEL 03/13 1550 Complete CBC WITHOUT DIFFERENTIAL 03/13 155 Complete EKG 03/13 155 Active Laboratory Tests 03/13/18 2212: Lactic Acid Cancelled 03/13/18 1848: Urine Color YEL, Urine Clarity CLEAR, Urine pH 6.5, Ur Specific [place] 1.015, Urine Protein NEG, Urine Ketones TRACE H, Urine Nitrite NEG, Urine Bilirubin NEG, Urine Urobilinogen 1.0, Ur Leukocyte Esterase TRACE H, Ur Microscopic SEDIMENT EXAMINED, Urine RBC RARE, Urine WBC 1-3 H, Ur Epithelial Cells MANY H , Urine Bacteria FEW H, Urine Hemoglobin NEG, Urine Glucose NEG 03/13/18 1710: Lactic Acid 1.1 03/13/18 1608: Anion Gap 9, Estimated GFR > 60, BUN/Creatinine Ratio 13.8, Glucose 144 H, Calcium 8.9, Total Bilirubin 0.1 L, AST 27, ALT 33, Alkaline Phosphatase 63, Troponin I < 0.01, Total Protein 6.2 L, Albumin 3.6, Globulin 2.6, Albumin/ Globulin Ratio 1.4, Total Beta HCG NEGATIVE, CBC w Diff NO MAN DIFF REQ, RBC 4.03 L, MCV 81.3, MCH 27.0, MCHC 33.2, RDW 15.4 H, MPV 6.9 L, Gran % 61.8, Lymphocytes % 27.7, Monocytes % 7.2, Eosinophils % 2.9, Basophils % 0.4, Absolute Granulocytes 6.0, Absolute Lymphocytes 2.7, Absolute Monocytes 0.7 H, Absolute Eosinophils 0.3, Absolute Basophils 0 Microbiology 03/13 1627 STOOL: Cryptosporidium Antigen - CAN Cancelled: Cancelled via OE: Per Decision 03/13 1627 STOOL: Giardia Antigen (GEORGE) - CAN Cancelled: Cancelled via OE: Per Decision 03/13 1627 STOOL: Clostridium difficile Toxin A & B - CAN Cancelled: Cancelled via OE: Per Decision Patient is here for evaluation of left-sided flank pain radiating into the lower quadrant on the left side and left lower back. Pain started 2 days ago has been getting worse she reports this is similar to previous kidney stone pain. On initial evaluation patient is borderline hypotensive 90s over 60s. She is not tachycardic. Labs dry CT scan EKG ordered patient medicated with fluids Toradol and Zofran. Blood work is overall unremarkable. Urine is not showing significant signs of infection. Patient is feeling somewhat better after Toradol and Zofran. She was given 2 mg IV morphine for additional pain relief. Blood pressure HAs responded well to fluids. CT scan is unremarkable. Patient is not vomiting here there has been no diarrhea here. She is able to tolerate fluids by mouth. She is feeling better. Patient will be discharged with instructions to continue her at home pain medications. She is on pain management for her chronic back pain. Also Tylenol ibuprofen for pain Zofran for nausea. Discussed return precautions patient agrees the plan Diagnostic Imaging: Viewed by Me: CT Scan. Discussed w/RAD: CT Scan. Radiology Impression: PATIENT: HARRIETT SORTO PRESENT AGE: 47 PATIENT ACCOUNT NO: [id number] : 68 LOCATION: [facility] ORDERING PHYSICIAN: Emir AKERS SERVICE DATE: 03/13/185963 EXAM TYPE: CAT - CT ABD & PELVIS W/O IV CONTRAS EXAMINATION: CT ABDOMEN AND PELVIS WITHOUT CONTRAST CLINICAL INFORMATION: Suprapubic and left lower back pain. COMPARISON: CT abdomen and pelvis with contrast 02/08/2018. TECHNIQUE: Multidetector volumetric imaging was performed from the superior aspect of the liver through the pubic symphysis. Sagittal and coronal reformatted images were obtained on the technologist's workstation. DLP: 1260 mGy-cm FINDINGS: LUNG BASES: The lung bases are clear. The heart size is normal. LIVER, GALLBLADDER, AND BILIARY TREE: The liver is normal in size, shape, and attenuation. No focal hepatic lesion or biliary ductal dilatation is present. Gallbladder has been surgically removed. PANCREAS: Unremarkable. SPLEEN: Unremarkable. ADRENAL GLANDS: Again visualized is a left adrenal nodule measuring 4.0 x 3.0 cm. It is same size and density. The right adrenal gland is unremarkable. KIDNEYS AND URETERS: The kidneys are normal in size, shape, and attenuation. No hydronephrosis, hydroureter, or calculi seen. No perinephric stranding. BLADDER: Unremarkable. GASTROINTESTINAL TRACT: There is scattered stool seen throughout the colon without distention. The small bowel loops are normal caliber. No obstruction, free air or free fluid seen. ABDOMINAL WALL: A tiny umbilical hernia containing fat is noted. LYMPH NODES: Normal. VASCULAR: Unremarkable. PELVIC VISCERA: Minimal sigmoid colon diverticulosis. No diverticulitis. No mass or free fluid in the pelvis.. OSSEOUS STRUCTURES: There are degenerative disc changes L5-S1 disc level with loss of disc height. No lytic or sclerotic process seen. IMPRESSION: No acute intra- abdominal process seen. Left adrenal mass is stable. There is most likely adrenal adenoma as proven on previous MRI exam 03/04/2010. No change from 2017 exam. DICTATED BY: Myles Coulter MD DATE/TIME DICTATED:03/13/181909 BIN PACKER:MARCO DATE/TIME TRANSCRIBED:03/13/181909 CONFIDENTIAL, DO NOT COPY WITHOUT APPROPRIATE AUTHORIZATION. <Electronically signed in Other Vendor System> SIGNED BY: Myles Coulter MD 03/13/181920 Initial ED EKG: normal sinus rhythm, no ST T wave changes (Emir Shirley) Departure Departure Disposition: HOME OR SELF CARE Condition: Stable Clinical Impression Primary Impression: Abdominal pain Qualifiers: Abdominal location: generalized Qualified Code: R10.84 - Generalized abdominal pain Referrals: Orlando Skinner MD (PCP/Family) Additional Instructions: Follow-up with your primary care doctor tomorrow as scheduled. Increase fluids. Continue your at home pain medications. Monitor symptoms if you have worsening pain unable tolerate fluids fever or any other concerns return immediately. Please go over all results of today's visit with your primary care doctor. Contact your primary care doctor to let them know you were here in the emergency room. There may be nonspecific findings which may not be related to your visit today here in the emergency room but may require further evaluation and chronic monitoring by your primary care doctor. If you had a laceration today the chance of foreign body always remains. You should follow-up with your primary care doctor for recheck in 3-5 days for a wound check. If you had an x-ray done there is a chance that a fracture could have been missed on initial read and you should follow-up with your primary care doctor for repeat x-rays if symptoms persist. If your blood pressure was elevated here in the emergency room please have [facility] doctor within the next 48. If you were prescribed a narcotic here in the emergency room or any type of controlled substances you're not allowed to drive while taking this medication or operate any type of heavy machinery. Narcotics can make you feel lightheaded dizziness nausea and can cause constipation. You may need to bulk picker a stool softener. Thank you for choosing [facility] emergency room. Please return to the emergency room immediately if you have any other concerns worsening of symptoms. Departure Forms: Customer Survey General Discharge Information (Emir Shirley) PA/INSTRUMENT SHOP SUPERVISOR Co-Sign Statement Statement: ED Attending supervision documentation- I saw and evaluated the patient. I have also reviewed all the pertinent lab results and diagnostic results. I agree with the findings and the plan of care as documented in the PA's/INSTRUMENT SHOP SUPERVISOR's documentation. x I have reviewed the ED Record and agree with the PA's/INSTRUMENT SHOP SUPERVISOR's documentation. [] Additions or exceptions (if any) to the PAs/INSTRUMENT SHOP SUPERVISOR's note and plan are summarized below: [] (Bing AMADOR,Zane) Critical Care Note Critical Care Note Critical Care Time: non-applicable (Emir Shirley)
--- NOTE | 2018-03-13 19:21 | CT SCAN REPORT ---
EXAMINATION: CT ABDOMEN AND PELVIS WITHOUT CONTRAST CLINICAL INFORMATION: Suprapubic and left lower back pain. COMPARISON: CT abdomen and pelvis with contrast 02/08/2018. TECHNIQUE: Multidetector volumetric imaging was performed from the superior aspect of the liver through the pubic symphysis. Sagittal and coronal reformatted images were obtained on the technologist's workstation. DLP: 1260 mGy-cm FINDINGS: LUNG BASES: The lung bases are clear. The heart size is normal. LIVER, GALLBLADDER, AND BILIARY TREE: The liver is normal in size, shape, and attenuation. No focal hepatic lesion or biliary ductal dilatation is present. Gallbladder has been surgically removed. PANCREAS: Unremarkable. SPLEEN: Unremarkable. ADRENAL GLANDS: Again visualized is a left adrenal nodule measuring 4.0 x 3.0 cm. It is same size and density. The right adrenal gland is unremarkable. KIDNEYS AND URETERS: The kidneys are normal in size, shape, and attenuation. No hydronephrosis, hydroureter, or calculi seen. No perinephric stranding. BLADDER: Unremarkable. GASTROINTESTINAL TRACT: There is scattered stool seen throughout the colon without distention. The small bowel loops are normal caliber. No obstruction, free air or free fluid seen. ABDOMINAL WALL: A tiny umbilical hernia containing fat is noted. LYMPH NODES: Normal. VASCULAR: Unremarkable. PELVIC VISCERA: Minimal sigmoid colon diverticulosis. No diverticulitis. No mass or free fluid in the pelvis.. OSSEOUS STRUCTURES: There are degenerative disc changes L5-S1 disc level with loss of disc height. No lytic or sclerotic process seen. IMPRESSION: No acute intra-abdominal process seen. Left adrenal mass is stable. There is most likely adrenal adenoma as proven on previous MRI exam 03/04/2010. No change from 02/09/2018 exam.
== END 2018-03-13 20:06 ==
LOC: ERH 15:46
PROVIDERS: Physician Assistant Medical
DX: R10.32 Left lower quadrant pain (principal)
CPT/HCPCS: 74176; 81001; 87015; 87045; 87328; 87329; 87899; 87899-59; 93005; 93010; 96361; 96374; 96375; J1885; J2405